=== PATIENT | female | born 1965 ===

== ENCOUNTER 2020-09-21 07:08 | Day surgery (SDC) | payer OTHER ==
[2020-09-21] MEDS ORDERED: MONODOX100 MG PO (11:49)
[2020-09-21] MEDS ORDERED: ULTRACET PO (11:50)
[2020-09-21] MEDS ORDERED: IBU600 MG PO (11:50)
== END 2020-09-21 15:10 | disposition home or self-care (01) ==
LOC: CIR.AMB 07:08
PROVIDERS: ATTEND Obstetrics & Gynecology
DX: D06.7 Carcinoma in situ of other parts of cervix (principal); Z20.822 Contact with and (suspected) exposure to COVID-19

== ENCOUNTER 2021-01-10 12:15 | Inpatient (IN) | payer OTHER ==
[~2021-01-10] VITALS: Ht 157.5 cm; Wt 64.4 kg
[~2021-01-10 12:15] MED LIST: IBU600 MG PO; MONODOX100 MG PO; ULTRACET PO
[2021-01-10] MEDS ORDERED: CHLORTHALIDONE25 MG PO (14:40)
[2021-01-11] MEDS ORDERED: CANDESARTAN CIL16 MG (13:59)
== END 2021-01-13 14:02 | disposition home or self-care (01) | DRG 741 ==
LOC: OB/GYN 01-11 07:00 → O/R 01-11 08:39 → OB/GYN 01-11 12:15 → O/R 01-11 15:53 → OB/GYN 01-11 19:26
PROVIDERS: ADMIT Obstetrics & Gynecology Gynecologic Oncology; ATTEND Obstetrics & Gynecology Gynecologic Oncology
PROC: 0UT20ZZ Resection of Bilateral Ovaries, Open Approach (ICD-10-PCS; 2021-01-11)
PROC: 0UT70ZZ Resection of Bilateral Fallopian Tubes, Open Approach (ICD-10-PCS; 2021-01-11)
PROC: 07BC0ZZ Excision of Pelvis Lymphatic, Open Approach (ICD-10-PCS; 2021-01-11)
PROC: 0UT90ZZ Resection of Uterus, Open Approach (ICD-10-PCS; principal; 2021-01-11 07:00)
DX: D06.1 Carcinoma in situ of exocervix (principal); N80.0 Endometriosis of uterus; D25.1 Intramural leiomyoma of uterus; N83.292 Other ovarian cyst, left side; N83.291 Other ovarian cyst, right side; N83.8 Other noninflammatory disorders of ovary, fallopian tube and broad ligament

== ENCOUNTER 2022-01-24 04:59 | Outpatient (CLI) | payer OTHER ==
[~2022-01-24 04:59] MED LIST changes: +CANDESARTAN CIL16 MG; +CHLORTHALIDONE25 MG PO
== END 2022-01-24 23:00 | disposition home or self-care (01) ==
LOC: LAB 04:59
PROVIDERS: ATTEND Obstetrics & Gynecology
DX: Z20.818 Contact with and (suspected) exposure to other bacterial communicable diseases (principal); Z20.828 Contact with and (suspected) exposure to other viral communicable diseases